=== PATIENT | female | born 1945 | race Caucasian/White ===

== ENCOUNTER 2016-06-28 03:54 | Inpatient (IN) | payer MEDICARE, MEDICAID ==
[~2016-06-28] VITALS: Ht 154.9 cm; Wt 134.8 kg
[2016-06-28] VITALS (7 sets, daily range): BP systolic 126–189; BP diastolic 58–89
--- NOTE | ~2016-06-28 | PR ---
[place], [place] PROGRESS NOTE NAME: KRIS MCCOY UNIT #: [id number] [facility] DOCTOR: MAINE ALLEN MD,ANA BIRTHDATE: [birth year] DOS: 07/03/2016 SUBJECTIVE: The patient was seen and examined on 07/03/2016. She has been still noted with intermittent pain in the abdomen with a cough. Denies symptoms of chest pain or any abdominal pain. Urine for legionella antigen was noted positive. The patient denies symptoms of hemoptysis. OBJECTIVE: VITAL SIGNS: Shows temperature was normal, respiratory rate 20, heart rate 86, blood pressure 166/77. Intake of ____ mL, negative ____ L. The pulse oxygen saturation on 2 L nasal cannula 97% saturation recorded. HEENT: Examination shows no acute change. NECK: Supple. CARDIOVASCULAR: S1, S2 audible. LUNGS: The patient noted without any wheezing or crackles. ABDOMEN: Still noted mild tenderness in the upper portion of the abdomen. LABORATORY DATA: The lower portion of the CT of the thorax shows evidence of left lower lobe infiltration and consolidation, which were not visible on the chest x-ray. There was no abnormal finding noted in the CT scan of the abdomen and pelvis as per assessment of the radiologist. Urine for legionella antigen noted positive. IMPRESSION: 1. The patient with acute legionella pneumonia for this patient visible only on the CT scan of the chest for the patient involving the left lower lobe with general malaise. 2. Muscular pain of the anterior abdominal wall of the patient secondary to cough. 3. Severe debility and also deconditioning. 4. Congestive heart failure with edema for this patient. 5. Atrial fibrillation with intermittent rapid ventricular response. 6. Anticoagulation for the patient for the atrial fibrillation, which is still noted subtherapeutic. PLAN OF TREATMENT: Continue to adjust the antibiotics for the patient according to current culture results. Physical therapy and occupational therapy for the patient has been ordered. Consultation for [facility] for the patient. Continue Zithromax for this patient for the medical legionella infection. Other supportive plan of management. Usual care. [place], [place] PROGRESS NOTE NAME: KRIS MCCOY UNIT #: [id number] [facility]: [facility] DOCTOR: MAINE ALLEN MD,ANA BIRTHDATE: [birth year] ANA GROVE MD CM:PNTRANS 09 ANA ALLEN MD 07/03/16 1310 interface
--- NOTE | ~2016-06-28 | CON ---
[place], [place] RE[facility]ATION [id number] UNIT #: [id number] ROOM: [facility] DOCTOR: TORSTEN HURD MD BIRTHDATE: [birth year] DOS: 07/02/2016 HISTORY OF PRESENT ILLNESS: This is a 70-year-old ____ [place] woman with a history of chronic atrial fibrillation, going back at least 7-8 years according to the . She also has had a stroke last year with some residual. She has chronic anemia, type 2 diabetes mellitus, and also carries a diagnosis of combined systolic and diastolic heart failure. She had had hysterectomy. She does not smoke nor does she drink alcoholic beverages. She had been a senior care resident and is . She had become increasingly short of breath along with some cough and has been bedridden for many months and was brought to this hospital. She had no fever or chills. tells me that she had been eating reasonably well. No swelling of the lower extremities, loss of consciousness. ALF MEDICATIONS: Numerous, albuterol, Breo Ellipta, allopurinol, alprazolam, aspirin, atorvastatin, bethanechol, Celebrex, citalopram, clonidine 0.3 mg t.i.d., diltiazem CD 240 daily, furosemide 20 daily, metoprolol 25 mg b.i.d., potassium chloride 10 mEq daily, furosemide 20 p.o. daily, metformin 1 gram daily, ranitidine 150 daily, Florastor 250 mg daily, Januvia, spironolactone 25 b.i.d., Flomax 0.4 mg daily, warfarin 2 mg on Saturday and 4 on the other days. PHYSICAL EXAMINATION: GENERAL: Reveals a patient who is extremely obese. She is normally mobile. She is alert, but may not be quite oriented. VITAL SIGNS: Temperature is normal. Pulse is 110 and irregular. JVP is 168/94. NECK: No bruits. There is no cardiomegaly. HEART: Cardiac auscultation did not reveal any murmurs. EXTREMITIES: Large legs with minimal edema. RESPIRATORY: Breath sounds are diminished with lot of crackles on both sides. DIAGNOSTIC STUDIES: An ECG showed atrial fibrillation with a ventricular rate of 122 beats per minute and probably old anterior wall [place]. There is QS in V1-V6 and low voltage limb leads. An echocardiogram [address] Del Rio and she had an EF of 35% at that time. Chest x-ray demonstrated normal cardiac silhouette and no acute process. Sodium 140, potassium 5.3, creatinine 1.05, and BUN 45. Hemoglobin 11.8 g/dL. IMPRESSION: This patient has atrial fibrillation with rapid ventricular rate. She is currently on metoprolol 50 b.i.d., which was increased from home dose. She is on IV Cardizem drip as well. There is no clinical or radiographic evidence of heart failure. Extreme obesity is a hindrance to her health. RECOMMENDATIONS: Lopressor can be increased to 100 mg b.i.d. and if this does not ____ the heart rate adequately, I would probably add digoxin. My other [place], [place] REPORT OF CONSULTATION NAME: KRIS MCCOY UNIT #: [id number] ROOM: [facility] DOCTOR: TORSTEN HURD MD BIRTHDATE: [birth year] concern is that the diltiazem is a negative inotropic drug and with the patient having reduced LV systolic function, this calcium channel behzad is likely to worsen her systolic function and if can be discontinued would be helpful to her. I thank you on behalf of Dr. Del Rio for this consult. TORSTEN HURD MD CM:CONSTR:REPORT OF CONSULTATION 1840 07/03/16 6705 interface
--- NOTE | ~2016-06-28 | CON ---
[place], [place] REPORT OF CONSULTATION NAME: KRIS MCCOY [facility] #: [id number] UNIT #: [id number] ROOM: 421 DOCTOR: MAINE ALLEN MDANA BIRTHDATE: [birth year] DOS: 06/30/2016 PULMONARY CONSULTATION, EVALUATION AND MANAGEMENT Consultation was requested by the hospitalist service. REASON FOR CONSULTATION: Persistent ongoing acute respiratory symptoms of shortness of breath and wheezing, not resolving. HISTORY OF PRESENT ILLNESS: The patient is a 70-year-old female who has been known to me with the past, but have not seen for several years by me. She has been admitted from the [facility]. The patient has developed symptoms of increased chest congestion, coughing, and shortness of breath for about 2-3 days. The patient stated that she had been ambulating. The patient has been noted with embolic stroke previously and noted decreased ambulation. The patient denies any symptoms of chest pain. The coughing has been still noted with sputum expectoration described intermittently. Denies symptoms of hemoptysis. She denies any pain in the chest. The wheezing, the patient has been noted continuously worsening for this patient intermittently. REVIEW OF SYSTEMS: CONSTITUTIONAL: Fatigue and tiredness noted without symptoms of fever or chills. EYES: Denies burning, redness, or tenderness. EARS, NOSE, THROAT: The patient denies sore throat, hoarseness, otalgia, postnasal drainage or epistaxis. CARDIOVASCULAR: Denies anginal pain, edema of the lower extremities. GASTROINTESTINAL: The patient with severe morbid obesity without any abdominal pain, hematemesis, melena, dysphagia, or hematochezia. GENITOURINARY: Denies dysuria, suprapubic pain, hematuria. Currently has Connor catheter in place. SKIN: Denies lesions or rashes. MUSCULOSKELETAL: Denies acute joint pain, redness, or tenderness. CENTRAL NERVOUS SYSTEM: The patient with residual hemiparesis from the past. SOCIAL HISTORY: The patient is and currently residing in the nursing facility. She has been noted nonsmoker lifetime. No history of past alcohol use or any illicit drug use. PAST MEDICAL HISTORY: For this patient was noted with, 1. History of chronic atrial fibrillation. 2. History of congestive heart failure with diastolic dysfunction. 3. Chronic severe obesity. 4. History of gastroesophageal reflux. 5. Chronic lymphedema of the lower extremities as well. 6. Past history of embolic stroke for this patient in bedridden status for this patient as well. 7. History of morbid obesity. 8. Hypercoagulable status. 9. Type 2 diabetes mellitus. [place], [place] REPORT OF CONSULTATION NAME: KRIS MCCOY UNIT #: [id number] ROOM: 421 DOCTOR: ANA ANGLIN MD BIRTHDATE: [birth year] PAST SURGICAL HISTORY: The patient was known as a complete hysterectomy. FAMILY HISTORY: The patient's mother at the age of 8585 years old from complications of dementia. Father at age of 6565 years old from complications related to bronchial asthma. HOME MEDICATIONS: The patient was rather noted as use of albuterol sulfate, Xanax, aspirin, Lipitor, bethanechol, Lexapro, citalopram, clonidine, diltiazem, Breo Ellipta, Lasix oral, sliding scale insulin coverage, Levemir insulin, metformin, metoprolol tartrate, potassium chloride, ranitidine, Florastor, Aldactone, Flomax, torsemide, Coumadin 2 mg alternating 4 mg daily. DRUG ALLERGIES: Reported allergy: 1. PENICILLIN. 2. IODINE. 3. LOVASTATIN. PHYSICAL EXAMINATION: GENERAL: This is a 70-year-old white female who has been noted audible wheezing, currently noted Intensive Care Unit. Height of 5 feet 1 inch, weight of 319 pounds, BMI 60.0. VITAL SIGNS: The patient shows normal temperature, respiratory rate of the patient recorded as 20-22, heart rate of 98-131. Atrial fibrillation was noted. Blood pressure ranging between 210/170 to 130/90. Intake for the patient 1600 mL, output was 2.854 liters. Negative fluid balance 1229 mL. Pulse oxygen saturation on 2 L nasal cannula was 98% saturation. HEENT: Chronic severe obesity. Neck was supple. Head was atraumatic. Eyes nonicterus. CARDIOVASCULAR: S1, S2 audible. LUNGS: The patient was noted with generally reduced breath sounds. Diffuse expiratory wheezing was noted. Air entry was noted moderately decreased. No crackles were heard. ABDOMEN: Soft, nontender and obese. EXTREMITIES: Shows chronic edematous changes in the patient's lower extremities. SKIN: No lesions or rashes. MUSCULOSKELETAL: No acute deformities. LABORATORY DATA: Done on this patient. CBC of the patient on 06/28/2016 admission, WBC count was 8.8, hemoglobin 10.7, hematocrit 35.4, platelet count of 201,000. The lactic acid 2.0 on admission 06/28/2016. On 06/28/2016, INR 2.6. CMP of the patient on 06/28/2016 on admission, glucose 229, BUN 21, creatinine 1.09, carbon dioxide 33. ProBNP 770. Influenza A and B, nasal washing antigens were negative. The CMP of the patient that was done for the patient on 06/29/2016 shows BUN 22, creatinine 1.04. Glucose of 301. CBC on patient of 06/29/2016 shows hemoglobin 10.5, hematocrit 34.6, WBC count normal, platelet count was normal at 218,000. The blood culture of the patient, which was done for the patient on admission on no bacterial growth. Preliminary [place], [place] REPORT OF CONSULTATION NAME: KRIS MCCOY UNIT #: [id number] ROOM: [facility] DOCTOR: MAINE ALLEN MD,[facility] BIRTHDATE: [birth year] with final cultures are still pending. Culture of the sputum of the patient showed no bacterial growth. CBC of 06/30/2016, WBC count 12.7, hemoglobin 11, hematocrit 35.6, platelet count 253,000. PT/INR this morning noted subtherapeutic as 1.8. BMP of the patient this morning BUN 32, creatinine was normal at 1.08, glucose 370, potassium 5.3, carbon dioxide 35. The chest x-ray only 1 view, which was done in the Emergency Room 06/28/2016, patient was noted with finding of pulmonary venous congestion noted for this patient in the lungs bilaterally with either cardiomegaly on this patient causing the blunting of the right costophrenic angle or infiltration in the left lower lung cannot be completely excluded, lack of the lateral view of the patient does limit the finding and the film was also noted somewhat asymmetrical. IMPRESSION: 1. The patient who has been currently noted with acute pneumonia suspected with congestive heart failure and acute exacerbation of bronchial asthma for this patient would be likely. 2. Morbid obesity for this patient as well. 3. Suspicion of obstructive sleep apnea disorder, but not been assessed in the past for obstructive sleep apnea disorder. 4. The patient with evidence of chronic hypercarbic respiratory failure as well. 5. History of diabetes mellitus. The patient has uncontrolled diabetes mellitus as well. 6. Wheezing, patient noted with suspicion of the mucous impaction of the major airways. 7. Subtherapeutic INR noted today. PLAN OF TREATMENT: Continue conservative treatment at this time with antibiotics, bronchodilators, oxygen supplementation and others. Sputum culture was noted negative. PA lateral chest x-ray of the patient will be reviewed with the patient to exclude the left lower lobe area of atelectasis, infiltration or other abnormalities. Diuresis, the patient to be continued on close monitoring of BUN and creatinine for this patient as well. All other supportive therapy, plan of management, continue to maximize the medical management of atrial fibrillation with rapid ventricular response. Further change in treatment will be done based on the progression of the illness. Other treatment and management for the patient will be changed for the patient based on progression of the illness. Use of the BiPAP in case of any progressive respiratory failure. Arterial blood gas will be done p.r.n. to reassess in case of further hypoxic for this patient or mental status changes. Thanks for allowing me to participate in the care of this patient. [place], [place] REPORT OF CONSULTATION NAME: KRIS MCCOY [place] UNIT #: [id number] ROOM: [facility] DOCTOR: ANA ANGLIN MD BIRTHDATE: [birth year] ANA GROVE MD CM:CONSTR:REPORT OF CONSULTATION 1549 07/06/16 1553 interface
--- NOTE | ~2016-06-28 | PR ---
[place], [place] PROGRESS NOTE NAME: KRIS MCCOY [facility] #: [id number] UNIT #: [id number] ROOM: [facility] DOCTOR: MAINE ALLEN MD,ANA BIRTHDATE: [birth year] DOS: 07/01/2016 SUBJECTIVE: She has been complaining of pain, which is described in the abdomen in the area of left flank as well as in the mid portion of the abdomen. The symptoms were not associated with any nausea, vomiting at the present time. Shortness of breath has been noted sometime shallow at time. She has been noted mild coughing without any sputum expectoration. She denies any symptoms of chest pain. OBJECTIVE: VITAL SIGNS: For the patient which has been recorded showed normal temperature, respiratory rate 23, heart rate 90, blood pressure 150/85-163/85. Intake for the patient was recorded as 2000, the output 5500 mL, and negative 3500 mL. Pulse ox saturation recorded 93% saturation. HEENT: Examination shows moderate obesity. NECK: Supple. CARDIOVASCULAR: The S1, S2 is audible. LUNGS: For the patient was noted without any crackles. ABDOMEN: Noted with severe chronic obesity. Mild tenderness for this patient noted with palpation of the mid abdomen. Bowel sounds are present. EXTREMITIES: Showed reduction of the edema from yesterday's examination. LABORATORY DATA: PT/INR today was noted 1.7, which is still subtherapeutic. BMP this morning, BUN 39, creatinine 1.07, glucose of 321, carbon dioxide 35. CBC: WBC count 12.5, hemoglobin 11.1, hematocrit 36.4. The platelet count was normal. Chest x-ray, 2-view, which was done for the patient yesterday, I personally reviewed, shows no acute pulmonary infiltration or other abnormalities at the present time. The arterial blood gas was obtained on 2 L nasal cannula showed pH of 7.37, pCO2 of 62, pO2 of 63.9. IMPRESSION: 1. The patient who has been currently noted with acute respiratory failure, most likely related to congestive heart failure, which is improving. There was no evidence of pneumonia noted radiologically in the patient's chest x-ray, which was repeated yesterday. 2. Oral anticoagulation. 3. Atrial fibrillation with rapid ventricular response, is improving. 4. Acute exacerbation of bronchial asthma as well, which has been improving gradually. 5. Abdominal pain. The patient, etiology unclear requires further assessment except therapeutic INR with adjustment continued for this patient with anticoagulation use of the Coumadin. PLAN OF TREATMENT: BiPAP could be used for this patient p.r.n. with the settings of 14/8 as needed. Monitoring other respiratory status. The dose of the corticosteroids of the patient will be decreased to 40 mg daily from tomorrow morning. Continuation of other previous treatment, plan of management. The antibiotic spectrum needs to be decreased for this patient as soon as all the culture results becomes available. Other supportive plan and management. Further treatment changes will be done based on the progression of the illness. [place], [place] PROGRESS NOTE NAME: KRIS MCCOY UNIT #: [id number] ROOM: [facility] DOCTOR: ANA ANGLIN MD BIRTHDATE: [birth year] ANA GROVE MD CM:PNTRANS [id number] ANA ALLEN MD 07/01/162055 interface
--- NOTE | ~2016-06-28 | PR ---
[place], [place] PROGRESS NOTE NAME: KRIS MCCOY UNIT #: [id number] ROOM: [facility] DOCTOR: MAINE ALLEN MD,ANA BIRTHDATE: [birth year] DOS: 07/04/2016 PULMONARY PROGRESS NOTE SUBJECTIVE: She has been noted more awake and alert this morning. She still noted drowsy. The abdominal pain seemed to be better partially. The coughing has been noted mild. Shortness of breath was also noted decreased. Oxygen supplementation continued nasal cannula with use of the BiPAP intermittently as well. OBJECTIVE: VITAL SIGNS: Normal temperature, respiratory rate of 19, heart rate 94, blood pressure 159/90-184/84. Intake for this patient 1400 mL, output 3600 mL, negative fluid balance approximately 2 liters. HEENT: On examination chronic obesity. NECK: Supple. CARDIOVASCULAR SYSTEM: S1, S2 audible. LUNGS: Shows [id number] decreased breath sounds without any wheezing or crackles. ABDOMEN: Soft, nontender. IMPRESSION: 1. Acute Legionella pneumonia for this patient noted involving the left lower lobe for this patient. 2. Acute congestive heart failure, which has been resolving. 3. Improving mental status changes. 4. Atrial fibrillation with rapid ventricular response still, treated with IV Cardizem drip for this patient, anticoagulation continued with Coumadin as well. PLAN OF TREATMENT: No changes in plan of management at this time. Continue the patient's current therapy, plan of care as previously. Usual medical management and plan of care. Supportive care. ANA GROVE MD CM:PNTRANS [phone] ANA ALLEN MD 07/04/161950 interface
--- NOTE | ~2016-06-28 | PR ---
[place], [place] PROGRESS NOTE NAME: KRIS MCCOY [facility] #: [id number] UNIT #: [id number] ROOM: 421 DOCTOR: MAINE ALLEN MD,ANA BIRTHDATE: [birth year] DOS: 07/05/2016 PULMONARY PROGRESS NOTE SUBJECTIVE: She has been noted essentially the same, reduction of the cough, shortness of breath, atrial fibrillation still noted with rapid ventricular response. The patient IV Cardizem drip has been discontinued this morning. Heart rates were noted in the 100-teens. She has not been noticed symptoms of chest pain. Noted generalized weakness and fatigue. The patient transfer to the long-term acute care facility has been refused by the insurance. OBJECTIVE: VITAL SIGNS: For the patient which has been recorded showed the temperature of the patient noted as normal. The respiratory rate of the patient recorded as 20-23, heart rate 96, blood pressure 168/97-166/99. Intake for the patient was 1980 mL, ____ 3000 mL, negative fluid balance of 1100 mL. The pulse oxygen saturation 3 liters nasal cannula 94% saturation. HEENT: Chronic obesity. NECK: Supple. CARDIOVASCULAR: S1, S2 audible. LUNGS: Moderate decreased breath sound without any wheezing or crackles. ABDOMEN: Soft, nontender. LABORATORY DATA: BMP today: BUN 41, creatinine was normal, glucose 198. Carbon dioxide 35. PT/INR noted 2.9, which is therapeutic today. CBC this morning, WBC count 24.7, hemoglobin 14.2, hematocrit of 44.7, platelet count 275,000, ____% segmented neutrophils. IMPRESSION: 1. The patient with acute Legionella pneumonia for this patient was noted. 2. Therapeutic INR for the patient. 3. Resolving acute exacerbation of bronchial asthma as well. 4. Severe morbid obesity. 5. Past stroke for this patient and bedbound status. 6. Atrial fibrillation with rapid ventricular response. PLAN OF TREATMENT: Discontinue Solu-Medrol for this patient at this time, there was no active wheezing noted. Monitor leukocytosis. Continue to maximize the cardiac management as well. Continue treatment for Legionella disease for this patient's left lower lobe pneumonia. Supportive care. Other therapy, plan of management. Usual care. Further treatment changes will be done based on the progression of the illness. [place], [place] PROGRESS NOTE NAME: KRIS MCCOY UNIT #: [id number] ROOM: 421 DOCTOR: MAINE ALLEN MD,ANA BIRTHDATE: [birth year] ANA GROVE MD CM:PNANGELA [id number] ANA ALLEN MD 07/06/16227 interface
--- NOTE | ~2016-06-28 | PR ---
[place], [place] PROGRESS NOTE [id number] UNIT #: [id number] ROOM: [facility] DOCTOR: GLORIA GALLO MD BIRTHDATE: [birth year] DOS: 07/03/2016 SUBJECTIVE: The patient examined in the Intensive Care Unit. The patient's blood pressure is still 160/70, she is still on 15 mg of Cardizem. She is already on maximum dose of beta behzad with 100 b.i.d. of Lopressor. PHYSICAL EXAMINATION: VITAL SIGNS: Blood pressure today is 160/70, heart rate is about 86 and afebrile. NECK: Supple, no JVD. LUNGS: Diminished breath sounds. HEART: Sounds are irregularly irregular. ABDOMEN: Soft. NEUROLOGIC: Stable. LABORATORY DATA: BUN 45, creatinine is 1, potassium is 5.3. IMPRESSION: The patient with persistent atrial fibrillation on Coumadin. INR is 1.7. RECOMMENDATIONS: Start her on Cardizem-CD 120 daily. Wean off the Cardizem drip as long as the heart rate is below 90. Continue anticoagulation. Keep the INR about 2 and we will follow up. GLORIA GALLO MD CM:PNANGELA [id number] GLORIA GALLO MD 07/03/16 1827 interface
--- NOTE | ~2016-06-28 | PR ---
[place], [place] PROGRESS NOTE NAME[id number] UNIT #: [id number] ROOM: [facility] DOCTOR: TORSTEN HURD MD BIRTHDATE: [birth year] DOS: 07/04/2016 SUBJECTIVE: She is still in ICU. Her heart rate has been in the 90s. She is on diltiazem 15 mg IV per hour, metoprolol 100 mg b.i.d., and she also received a larger dose of oral diltiazem. She has no chest pain or breathing difficulty. She has not had any neurological symptoms. PHYSICAL EXAMINATION: GENERAL: This patient is very obese. She is lying in bed. Mobility is very little. She looks a little pale. VITAL SIGNS: Pulse is irregular at 96 beats per minute, blood pressure is somewhat elevated 184/84 and now is 159/92. NECK: Normal JVP, difficult to assess. CARDIOVASCULAR: On auscultation, no murmurs. LUNGS: Breath sounds are moderately diminished because of morbid obesity, very little edema of the lower extremities. LABORATORY DATA: Monitor shows atrial fibrillation with a rate of 96 beats per minute. IMPRESSION: This patient has chronic atrial fibrillation the rate has digoxin 0.25 mg daily has been added and IV Cardizem should be discontinued, and she should stay on a higher dose of metoprolol and diltiazem. I saw this patient on behalf of Dr. Del Rio. TORSTEN HURD MD CM:PNTRANS 1203 07 TORSTEN HURD MD 07/04/162108 interface
--- NOTE | ~2016-06-28 | CON ---
[place], [place] REPORT OF CONSULTATION NAME: [facility]CC[facility] [id number] UNIT #: [id number] ROOM: [facility] DOCTOR: SHELLIE FERNÁNDEZ,VAIBHAV BIRTHDATE: [birth year] DOS: [facility] was called in yesterday for consult in atrial fibrillation. Upon review of the chart, it turns out the patient belongs to Dr. Lin for that, we signed off and the nurse in charge was notified to call Dr. Lin for further management and treatment. VAIBHAV HENSLEY MD CM:CONSTR:REPORT OF CONSULTATION 0940 07/01/16 2346 interface
--- NOTE | ~2016-06-28 | PR ---
[place], [place] PROGRESS NOTE NAME: KRIS MCCOY [facility] #: [id number] UNIT #: [id number] ROOM: [facility] DOCTOR: MAINE ALLEN MD,ANA BIRTHDATE: [birth year] DOS: 07/02/2016 SUBJECTIVE: The patient was seen and examined on 07/02/2016. She has been still noted with some pain in the abdomen which occurs with the movement. She has not been noted symptoms of diarrhea or vomiting. Shortness of breath, the patient has been noted intermittent change in mental status for the patient and she has been using the BiPAP, which has been tolerated by the patient. Arterial blood gases done today as the patient noted with worsening of the mental status this morning. She has been started on the BiPAP afterwards. OBJECTIVE: VITAL SIGNS: For the patient which have been recorded showed the temperature noted 99.7 degree Fahrenheit to normal temperature, respiratory rate 20-16, heart rate 101-95, blood pressure 180/86-164/87. Intake for the patient is 820 and output is 4050 mL with a negative of 3200 mL. The pulse oxygen saturation with the BiPAP was 98% saturation. HEENT: Shows chronic obesity. NECK: Supple. CARDIOVASCULAR SYSTEM: S1, S2 audible. LUNGS: Limited examination without any wheezing or crackles for this patient noted in the upper and mid portion of the lung. ABDOMEN: Soft with severe obesity, tenderness patient noted on palpation in the upper abdomen. Bowel sounds are present. EXTREMITIES: Shows chronic obesity, partial reduction in edema. LABORATORY DATA: INR today noted as 1.8. The BMP of patient this morning was noted BUN 45; creatinine was normal, glucose 314, potassium 5.3. ABG: The pH of 7.34, pCO2 of 65, pO2 of 68.5. CBC today: WBC count 12.3, hemoglobin 11.8, hematocrit was normal, platelets count was normal. IMPRESSION: 1. The patient who has been currently treated in the hospital at this time and being managed for acute on chronic hypercapnic and hypoxic respiratory failure. 2. Abdominal pain, the patient most likely musculoskeletal in origin. 3. Acute congestive heart failure also noted for this patient with interstitial edema without any evidence of pneumonia for this patient. 4. Severe morbid obesity. 5. Suspected obstructive sleep apnea disorder. PLAN OF TREATMENT: The BiPAP use will be continued for the patient to stabilize the respiratory status. Continue anticoagulation, bronchodilators, oxygen supplementation, assessment of the pain for this patient on the abdomen will be continued. All other supportive therapy, plan of management. Usual care. Other supportive plan of therapies as in progress. [place], [place] PROGRESS NOTE NAME: KRIS MCCOY UNIT #: [id number] ROOM: [facility] DOCTOR: ANA ANGLIN MD BIRTHDATE: [birth year] ANA GROVE MD CM:PNTRANS [id number] ANA ALLEN MD 07/02/16 1308 interface
--- NOTE | ~2016-06-28 | PR ---
[place], [place] PROGRESS NOTE NAME: KRIS MCCOY UNIT #: [id number] ROOM: 421 DOCTOR: ANA ANGLIN MD BIRTHDATE: [birth year] DOS: 07/06/2016 PULMONARY FOLLOWUP NOTE SUBJECTIVE: The patient was seen and examined on 07/06/2016. She has been transferred to telemetry floor. She was continued on anticoagulation and other medical management. The patient has not been noted with any acute hemodynamic instability, noted comfortable lying on the bed. OBJECTIVE: VITAL SIGNS: For the patient which has been recorded showed the temperature recorded normal, respiratory rate 20, heart rate 99-114 with atrial fibrillation, blood pressure noted 137/85-152/103. Intake is 1500 mL, output 2.650 liters. Pulse oxygen saturation on 3 liters nasal cannula 98% saturation. HEENT: Examination shows chronic obesity. NECK: Supple. CARDIOVASCULAR SYSTEM: S1, S2 audible. LUNGS: Noted without any wheezing or crackles. ABDOMEN: Chronic obesity. EXTREMITIES: Shows resolving edema of the lower extremities. LABORATORY DATA: INR in today's lab 3.1, which is normal. The CMP of patient that was done this morning for the patient noted BUN 42, creatinine was normal. CO2 was 37. CBC this morning, WBC count 22.8, hemoglobin, hematocrit and platelet count was normal. IMPRESSION: 1. The patient who has been noted with gradual improvement in the respiratory status with acute on chronic hypercapnic and hypoxic respiratory failure and acute on chronic bedbound status. 2. Past history of past stroke. 3. Acute Legionella pneumonia. 4. Chronic anticoagulation and atrial fibrillation with intermittent rapid ventricular response. 5. Over severe obesity. PLAN OF TREATMENT: Continuation of antibiotics, bronchodilators, and oxygen supplementation. The antibiotic will be extended for the patient for another 7 days for the medical Legionella pneumonia. Other supportive plan and management as in progress. Continue maximizing therapy for the patient from the cardiac standpoint for the patient as well. Monitor leukocytosis, which has been noted with gradual reduction at the present time. [place], [place] PROGRESS NOTE NAME: KRIS MCCOY UNIT #: [id number] ROOM: 421 DOCTOR: ANA ANGLIN MD BIRTHDATE: [birth year] ANA GROVE MD CM:PNTRANS [id number] ANA ALLEN MD 07/06/16 2316 interface
[~2016-06-28 03:54] MED LIST: ALDACTONE25 MG PO; ALLOPURINOL300 MG PO; AMITRIPTYLINE25 MG PO; ANAPROX DS550 MG PO; ASPIRIN ADULT L81 M2 PO; CARTIA XT240 MG PO; CIPROFLOXACIN500 MG PO; CITALOPRAM40 MG PO; CLONIDINE0.3 MG PO; Coumadin2.5 MG PO; DAYPRO600 M1 PO; DESITIN40% T; FLOMAX0.4 MG PO; GLIPIZIDE5 MG PO; HUMALOG100 U/ML SC; KEFLEX500 MG PO; LEVEMIR10 ML SC; LEVOFLOXACIN500 MG PO; MACROBID100 M1 PO; MELATONIN3 MG PO; METOPROLOL25 MG PO; MOTRIN800 MG PO; NEURONTIN100 MG PO; POTASSIUM CHLO10 ME4 PO; PROSOURCE PLUS887 ML PO; PROTONIX40 MG PO; PYRIDIUM200 MG PO; ROBAXIN750 MG PO; TORSEMIDE20 MG PO; TYLENOL325 M1 PO; VIBRAMYCIN100 MG PO; VOLTAREN GEL1% TP; WARFARIN SOD5 MG PO; WARFARIN2 MG PO; XANAX0.25 MG PO; [UNRECOGNIZED DRUG - OTHER] PO
[2016-06-28] MEDS ORDERED: BETHANECHOL CHL10 MG PO (04:20)
[2016-06-28] MEDS ORDERED: BREO ELLIPTA 11 EACH IH (04:21)
[2016-06-28] MEDS ORDERED: CELEBREX100 MG PO (04:22)
[2016-06-28] MEDS ORDERED: FLORASTOR250 MG PO (04:30)
[2016-06-28] MEDS ORDERED: JANUVIA100 MG PO (04:31)
[2016-06-28] MEDS ORDERED: LASIX20 MG PO (04:36)
[2016-06-28] MEDS ORDERED: LIPITOR10 MG PO (04:38)
[2016-06-28] MEDS ORDERED: METFORMIN1000 MG PO (04:39)
[2016-06-28 04:40] LABS: BASO % 0.5 % (0.0-1.0); EOS # 0.3 10*3/uL (0.0-0.4); EOS % 3.1 % (1.0-4.0); HEMATOCRIT 35.4 % (37.0-47.0); HEMOGLOBIN 10.7 g/dl (12.0-16.0); IG # 0.1 10*3/uL (0.0-0.1); LYMPH % 11.8 % (27.0-41.0); MEAN CELL VOLUME 91.5 fl (81.0-99.0); MEAN CORPUSCULAR HGB 27.6 pg (27.0-31.0); MEAN CORPUSCULAR HGB CONC 30.2 g/dl (33.0-37.0); MEAN PLATELET VOLUME 9.2 fl (9.6-12.3); MONO # 1.1 10*3/uL (0.1-1.0); MONO % 12.8 % (3.0-9.0); NEUT # 6.2 10*3/uL (2.3-7.9); NEUT % 70.3 % (47.0-73.0); NUCLEATED RED BLOOD CELL 0.2 % (0.0-0.0); PLATELET COUNT AUTOMATED 201 10*3/uL (130-400); RED BLOOD COUNT 3.87 10*6/uL (4.10-5.10); RED CELL DISTRI WIDTH 16.5 % (0-14.5); WHITE BLOOD COUNT 8.8 10*3/uL (4.8-10.8)
[2016-06-28] MEDS ORDERED: NOVOLOG10 ML SQ ×2 (04:43→07:07)
[2016-06-28] MEDS ORDERED: RANITIDINE HCL150 M1 PO (04:44)
[2016-06-28 04:49] LABS: INTERNATIONAL NORM RATIO 2.6 (2.0-3.5); PROTHROMBIN TIME 28.8 SECONDS (9.0-12.4)
[2016-06-28 04:59] LABS: ALKALINE PHOSPHATASE 141 U/L (45-117); BILIRUBIN, TOTAL 0.4 mg/dl (0.2-1.0); BUN 21 mg/dl (7-24); CARBON DIOXIDE 33 mmol/L (21-32); CHLORIDE 97 mmol/L (98-107); EST GLOM FILT AFRICAN AMERICAN > 60 ml/min; GLUCOSE 229 mg/dL (65-99); POTASSIUM 4.7 mmol/L (3.5-5.1); SGOT/AST 13 IU/L (3-35); SGPT/ALT 16 U/L (12-78); SODIUM 138 mmol/L (136-145); TOTAL PROTEIN 7.5 gm/dL (6.4-8.2)
[2016-06-28 05:02] LABS: TROPONIN I < 0.015 ng/ml (<0.045)
[2016-06-28 05:10] LABS: ABG BASE EXCESS 4.7 mmol/L (-2.0-2.0); ABG CO2 CONTENT 31.7 mmol/L (23-27); ABG HCO3 30.1 mmol/l (22-26); ARTERIAL BLOOD GAS PH 7.391 (7.35-7.45); ARTERIAL BLOOD GAS PO2 77.7 mmHg (80-90)
[2016-06-28] MEDS ORDERED: ALBUTEROL 3 ML 33 ML NEB (06:54)
[2016-06-28] MEDS ORDERED: COUMADIN2 MG PO (06:57)
[2016-06-28] MEDS ORDERED: CARDIZEM CD240 M1 PO (06:59)
[2016-06-28] MEDS ORDERED: KLOR-CON 1010 ME1 PO (07:11)
[2016-06-28] MEDS ORDERED: POTASSIUM CHLO20 MEQ PO (08:52)
[2016-06-28] MEDS ORDERED: POTASSIUM CHLO10 ME5 PO (08:54)
[2016-06-28 10:49] LABS: BILIRUBIN NEGATIVE (NEGATIVE); BLOOD TRACE-INTACT (NEGATIVE); CLARITY CLOUDY (CLEAR); COLOR YELLOW (YELLOW); GLUCOSE TRACE (NEGATIVE); KETONE NEGATIVE (NEGATIVE); LEUKO ESTERASE TRACE (NEGATIVE); NITRITE POSITIVE (NEGATIVE); PH 5.5 (5.0-9.0); PROTEIN NEGATIVE (NEGATIVE); UROBILINOGEN 0.2 E.U./dl (0.2-1.0)
[2016-06-28 11:03] LABS: BACTERIA 4+; URINE REFLEX COMMENT YES (NO); WBC 21-30 wbc/hpf (0-5)
[2016-06-28 11:04] LABS: CALCIUM OXALATE CRYSTALS 1+; RBC 16-20 rbc/hpf (0-2)
[2016-06-29] VITALS: BP 150/73
[2016-06-29 04:00] VITALS: BP 152/80
[2016-06-29 06:03] LABS: HEMATOCRIT 34.6 % (37.0-47.0); HEMOGLOBIN 10.5 g/dl (12.0-16.0); MEAN CELL VOLUME 91.5 fl (81.0-99.0); MEAN CORPUSCULAR HGB 27.8 pg (27.0-31.0); MEAN CORPUSCULAR HGB CONC 30.3 g/dl (33.0-37.0); MEAN PLATELET VOLUME 9.1 fl (9.6-12.3); PLATELET COUNT AUTOMATED 218 10*3/uL (130-400); RED BLOOD COUNT 3.78 10*6/uL (4.10-5.10); RED CELL DISTRI WIDTH 16.2 % (0-14.5); WHITE BLOOD COUNT 8.5 10*3/uL (4.8-10.8)
[2016-06-29 06:15] LABS: ALBUMIN 2.9 gm/dl (3.1-4.5); ALKALINE PHOSPHATASE 120 U/L (45-117); BILIRUBIN, TOTAL 0.4 mg/dl (0.2-1.0); BUN 22 mg/dl (7-24); CARBON DIOXIDE 32 mmol/L (21-32); CHLORIDE 99 mmol/L (98-107); CHOLESTEROL 186 mg/dL (<200); EST GLOM FILT AFRICAN AMERICAN > 60 ml/min; FREE T4 0.95 ng/dl (0.76-1.46); GLUCOSE 301 mg/dL (65-99); HDL CHOLESTEROL 64 mg/dl (40-60); LDL CHOLESTEROL 105 mg/dL (9-159); MAGNESIUM 2.5 mg/dL (1.5-2.1); SGOT/AST 6 IU/L (3-35); SGPT/ALT 15 U/L (12-78); SODIUM 139 mmol/L (136-145); TOTAL PROTEIN 7.2 gm/dL (6.4-8.2); TRIGLYCERIDES 86 mg/dl (<150); VLDL CHOLESTEROL 17 mg/dL (6-40)
[2016-06-29 06:19] LABS: INTERNATIONAL NORM RATIO 1.7 (2.0-3.5); THYROID STIM HORMONE (HS) 0.785 uIU/ml (0.358-4.75)
[2016-06-29 06:25] LABS: HEMOGLOBIN A1c 7.8 % (4.8-5.6)
[2016-06-29 06:28] LABS: LYMPHOCYTE # 0.5 10*3/uL (1.3-4.4); MYELOCYTES 2 % (0-0); NEUTROPHIL # 7.8 10*3/uL (2.3-7.9); NEUTROPHILS 92 % (47-73); PLATELET SUFFICIENCY NORMAL (NORMAL); TOTAL CELLS COUNTED 100 #CELLS
[2016-06-29 07:43] LABS: FOLIC ACID 4.01 ng/mL (>5.38); VITAMIN D, 25-HYDROXY 39.6 ng/mL (30-100)
[2016-06-29 12:00] VITALS: BP 135/56
[2016-06-29 16:00] VITALS: BP 155/71
[2016-06-29 20:00] VITALS: BP 158/71
[2016-06-30] VITALS (14 sets, daily range): BP systolic 130–210; BP diastolic 78–109
[2016-06-30 12:06] LABS: BASO % 0.1 % (0.0-1.0); HEMATOCRIT 35.6 % (37.0-47.0); IG # 0.2 10*3/uL (0.0-0.1); LYMPH # 0.5 10*3/uL (1.3-4.4); LYMPH % 4.2 % (27.0-41.0); MEAN CELL VOLUME 91.5 fl (81.0-99.0); MEAN CORPUSCULAR HGB 28.3 pg (27.0-31.0); MEAN CORPUSCULAR HGB CONC 30.9 g/dl (33.0-37.0); MONO # 1.1 10*3/uL (0.1-1.0); MONO % 8.3 % (3.0-9.0); NEUT % 85.9 % (47.0-73.0); PLATELET COUNT AUTOMATED 253 10*3/uL (130-400); RED BLOOD COUNT 3.89 10*6/uL (4.10-5.10); RED CELL DISTRI WIDTH 16.4 % (0-14.5); WHITE BLOOD COUNT 12.7 10*3/uL (4.8-10.8)
[2016-06-30 12:14] LABS: INTERNATIONAL NORM RATIO 1.8 (2.0-3.5); PROTHROMBIN TIME 19.5 SECONDS (9.0-12.4)
[2016-06-30 12:20] LABS: CARBON DIOXIDE 35 mmol/L (21-32); CHLORIDE 97 mmol/L (98-107); EST GLOM FILT AFRICAN AMERICAN > 60 ml/min; GLUCOSE 370 mg/dL (65-99); POTASSIUM 5.3 mmol/L (3.5-5.1); SODIUM 141 mmol/L (136-145)
[2016-06-30 12:26] LABS: BUN 32 mg/dl (7-24)
[2016-07-01] VITALS (12 sets, daily range): BP systolic 137–198; BP diastolic 82–101
[2016-07-01 05:54] LABS: BASO % 0.1 % (0.0-1.0); HEMATOCRIT 36.4 % (37.0-47.0); HEMOGLOBIN 11.1 g/dl (12.0-16.0); IG # 0.2 10*3/uL (0.0-0.1); LYMPH # 0.5 10*3/uL (1.3-4.4); MEAN CELL VOLUME 90.5 fl (81.0-99.0); MEAN CORPUSCULAR HGB 27.6 pg (27.0-31.0); MEAN CORPUSCULAR HGB CONC 30.5 g/dl (33.0-37.0); MEAN PLATELET VOLUME 9.3 fl (9.6-12.3); MONO # 0.9 10*3/uL (0.1-1.0); MONO % 7.4 % (3.0-9.0); NEUT # 10.9 10*3/uL (2.3-7.9); NEUT % 86.7 % (47.0-73.0); NUCLEATED RED BLOOD CELL 0.2 % (0.0-0.0); PLATELET COUNT AUTOMATED 258 10*3/uL (130-400); RED BLOOD COUNT 4.02 10*6/uL (4.10-5.10); WHITE BLOOD COUNT 12.5 10*3/uL (4.8-10.8)
[2016-07-01 05:57] LABS: BUN 39 mg/dl (7-24); CARBON DIOXIDE 35 mmol/L (21-32); CHLORIDE 95 mmol/L (98-107); EST GLOM FILT AFRICAN AMERICAN > 60 ml/min; GLUCOSE 321 mg/dL (65-99); POTASSIUM 5.1 mmol/L (3.5-5.1); SODIUM 139 mmol/L (136-145)
[2016-07-01 06:29] LABS: INTERNATIONAL NORM RATIO 1.7 (2.0-3.5); PROTHROMBIN TIME 18.1 SECONDS (9.0-12.4)
[2016-07-01 13:44] LABS: ABG BASE EXCESS 8.7 mmol/L (-2.0-2.0); ABG CO2 CONTENT 37.4 mmol/L (23-27); ABG HCO3 35.5 mmol/l (22-26); ABG TEMPERATURE 98.4 F (98.0-99.0); ARTERIAL BLOOD GAS PH 7.372 (7.35-7.45); ARTERIAL BLOOD GAS PO2 63.9 mmHg (80-90)
[2016-07-02] VITALS (12 sets, daily range): BP systolic 138–180; BP diastolic 59–94
[2016-07-02 05:57] LABS: BASO % 0.2 % (0.0-1.0); HEMATOCRIT 38.5 % (37.0-47.0); HEMOGLOBIN 11.8 g/dl (12.0-16.0); IG # 0.2 10*3/uL (0.0-0.1); LYMPH # 0.6 10*3/uL (1.3-4.4); LYMPH % 4.9 % (27.0-41.0); MEAN CELL VOLUME 89.5 fl (81.0-99.0); MEAN CORPUSCULAR HGB 27.4 pg (27.0-31.0); MEAN CORPUSCULAR HGB CONC 30.6 g/dl (33.0-37.0); MEAN PLATELET VOLUME 9.3 fl (9.6-12.3); MONO # 1.1 10*3/uL (0.1-1.0); MONO % 8.5 % (3.0-9.0); NEUT # 10.4 10*3/uL (2.3-7.9); NEUT % 84.5 % (47.0-73.0); PLATELET COUNT AUTOMATED 264 10*3/uL (130-400); RED CELL DISTRI WIDTH 15.5 % (0-14.5); WHITE BLOOD COUNT 12.3 10*3/uL (4.8-10.8)
[2016-07-02 06:06] LABS: BUN 45 mg/dl (7-24); CARBON DIOXIDE 32 mmol/L (21-32); CHLORIDE 99 mmol/L (98-107); EST GLOM FILT AFRICAN AMERICAN > 60 ml/min; GLUCOSE 314 mg/dL (65-99); POTASSIUM 5.3 mmol/L (3.5-5.1); SODIUM 140 mmol/L (136-145)
[2016-07-02 06:06] LABS: ABG BASE EXCESS 7.4 mmol/L (-2.0-2.0); ABG CO2 CONTENT 36.3 mmol/L (23-27); ABG HCO3 34.4 mmol/l (22-26); ABG TEMPERATURE 99.7 F (98.0-99.0); ARTERIAL BLOOD GAS PH 7.347 (7.35-7.45); ARTERIAL BLOOD GAS PO2 68.5 mmHg (80-90)
[2016-07-02 06:18] LABS: INTERNATIONAL NORM RATIO 1.8 (2.0-3.5); PROTHROMBIN TIME 19.3 SECONDS (9.0-12.4)
[2016-07-02 18:05] LABS: ORGANISM ID Not indicated. (.); SPECIMEN SOURCE Urine (.); STREPTOCOCCUS PNEUMONIAE AG Negative (Negative)
[2016-07-03] VITALS (13 sets, daily range): BP systolic 158–188; BP diastolic 66–105
[2016-07-03 06:15] LABS: INTERNATIONAL NORM RATIO 1.7 (2.0-3.5); PROTHROMBIN TIME 19.2 SECONDS (9.0-12.4)
[2016-07-03 09:24] LABS: HEMATOCRIT 41.4 % (37.0-47.0); HEMOGLOBIN 12.6 g/dl (12.0-16.0); MEAN CELL VOLUME 90.2 fl (81.0-99.0); MEAN CORPUSCULAR HGB 27.5 pg (27.0-31.0); MEAN CORPUSCULAR HGB CONC 30.4 g/dl (33.0-37.0); MEAN PLATELET VOLUME 8.7 fl (9.6-12.3); NUCLEATED RED BLOOD CELL 0.1 % (0.0-0.0); PLATELET COUNT AUTOMATED 273 10*3/uL (130-400); RED BLOOD COUNT 4.59 10*6/uL (4.10-5.10); RED CELL DISTRI WIDTH 15.1 % (0-14.5)
[2016-07-03 09:39] LABS: ALBUMIN 2.9 gm/dl (3.1-4.5); ALKALINE PHOSPHATASE 95 U/L (45-117); BILIRUBIN, TOTAL 0.4 mg/dl (0.2-1.0); BUN 41 mg/dl (7-24); CARBON DIOXIDE 38 mmol/L (21-32); CHLORIDE 97 mmol/L (98-107); EST GLOM FILT AFRICAN AMERICAN > 60 ml/min; GLUCOSE 243 mg/dL (65-99); POTASSIUM 4.9 mmol/L (3.5-5.1); SGOT/AST 9 IU/L (3-35); SGPT/ALT 19 U/L (12-78); SODIUM 142 mmol/L (136-145)
[2016-07-03 09:45] LABS: METAMYELOCYTES 1 % (0-0); MONOCYTE # 2.3 10*3/uL (0.1-1.0); MYELOCYTES 4 % (0-0); NEUTROPHIL # 10.1 10*3/uL (2.3-7.9); NEUTROPHILS 67 % (47-73); PLATELET SUFFICIENCY NORMAL (NORMAL); TOTAL CELLS COUNTED 100 #CELLS
[2016-07-04] VITALS (8 sets, daily range): BP systolic 137–184; BP diastolic 71–92
[2016-07-04 06:16] LABS: HEMATOCRIT 40.3 % (37.0-47.0); HEMOGLOBIN 12.3 g/dl (12.0-16.0); MEAN CELL VOLUME 90.2 fl (81.0-99.0); MEAN CORPUSCULAR HGB 27.5 pg (27.0-31.0); MEAN CORPUSCULAR HGB CONC 30.5 g/dl (33.0-37.0); MEAN PLATELET VOLUME 9.3 fl (9.6-12.3); PLATELET COUNT AUTOMATED 234 10*3/uL (130-400); RED BLOOD COUNT 4.47 10*6/uL (4.10-5.10); RED CELL DISTRI WIDTH 15.3 % (0-14.5)
[2016-07-04 06:28] LABS: BUN 41 mg/dl (7-24); CARBON DIOXIDE 37 mmol/L (21-32); CHLORIDE 94 mmol/L (98-107); EST GLOM FILT AFRICAN AMERICAN > 60 ml/min; GLUCOSE 197 mg/dL (65-99); POTASSIUM 4.7 mmol/L (3.5-5.1); SODIUM 138 mmol/L (136-145)
[2016-07-04 07:09] LABS: LYMPHOCYTE # 1.3 10*3/uL (1.3-4.4); METAMYELOCYTES 2 % (0-0); MONOCYTE # 2.1 10*3/uL (0.1-1.0); NEUTROPHIL # 10.4 10*3/uL (2.3-7.9); NEUTROPHILS 74 % (47-73); PLATELET SUFFICIENCY NORMAL (NORMAL); TOTAL CELLS COUNTED 100 #CELLS
[2016-07-04 07:10] LABS: INTERNATIONAL NORM RATIO 2.1 (2.0-3.5); PROTHROMBIN TIME 23.3 SECONDS (9.0-12.4); VACUOLATION OF NEUTROPHILS SLIGHT
[2016-07-05] VITALS: BP 166/99
[2016-07-05 04:00] VITALS: BP 168/97
[2016-07-05 06:31] LABS: HEMATOCRIT 44.7 % (37.0-47.0); HEMOGLOBIN 14.2 g/dl (12.0-16.0); MEAN CORPUSCULAR HGB 27.7 pg (27.0-31.0); MEAN CORPUSCULAR HGB CONC 31.8 g/dl (33.0-37.0); MEAN PLATELET VOLUME 9.6 fl (9.6-12.3); PLATELET COUNT AUTOMATED 275 10*3/uL (130-400); RED BLOOD COUNT 5.13 10*6/uL (4.10-5.10); WHITE BLOOD COUNT 24.7 10*3/uL (4.8-10.8)
[2016-07-05 06:35] LABS: BUN 41 mg/dl (7-24); CARBON DIOXIDE 35 mmol/L (21-32); CHLORIDE 94 mmol/L (98-107); EST GLOM FILT AFRICAN AMERICAN > 60 ml/min; GLUCOSE 198 mg/dL (65-99); MEAN CELL VOLUME 87.1 fl (81.0-99.0); POTASSIUM 4.9 mmol/L (3.5-5.1); SODIUM 137 mmol/L (136-145)
[2016-07-05 06:45] LABS: INTERNATIONAL NORM RATIO 2.9 (2.0-3.5); PROTHROMBIN TIME 33.5 SECONDS (9.0-12.4)
[2016-07-05 07:00] LABS: METAMYELOCYTES 1 % (0-0); NEUTROPHIL # 20.5 10*3/uL (2.3-7.9); NEUTROPHILS 83 % (47-73); TOTAL CELLS COUNTED 100 #CELLS
[2016-07-05 07:01] LABS: PLATELET SUFFICIENCY NORMAL (NORMAL)
[2016-07-05 12:00] VITALS: BP 150/0
[2016-07-05 16:00] VITALS: BP 156/120; BP 156/121
[2016-07-05 20:00] VITALS: BP 140/99
[2016-07-06] VITALS: BP 137/85
[2016-07-06 06:49] LABS: HEMATOCRIT 44.3 % (37.0-47.0); HEMOGLOBIN 13.8 g/dl (12.0-16.0); MEAN CELL VOLUME 87.7 fl (81.0-99.0); MEAN CORPUSCULAR HGB 27.3 pg (27.0-31.0); MEAN CORPUSCULAR HGB CONC 31.2 g/dl (33.0-37.0); MEAN PLATELET VOLUME 9.7 fl (9.6-12.3); PLATELET COUNT AUTOMATED 268 10*3/uL (130-400); RED BLOOD COUNT 5.05 10*6/uL (4.10-5.10); RED CELL DISTRI WIDTH 15.2 % (0-14.5); WHITE BLOOD COUNT 22.8 10*3/uL (4.8-10.8)
[2016-07-06 07:21] LABS: CHLORIDE 93 mmol/L (98-107); POTASSIUM 4.5 mmol/L (3.5-5.1); SODIUM 136 mmol/L (136-145)
[2016-07-06 07:22] LABS: INTERNATIONAL NORM RATIO 3.1 (2.0-3.5); PROTHROMBIN TIME 35.8 SECONDS (9.0-12.4)
[2016-07-06 07:35] LABS: ALBUMIN 2.7 gm/dl (3.1-4.5); ALKALINE PHOSPHATASE 84 U/L (45-117); BILIRUBIN, TOTAL 0.6 mg/dl (0.2-1.0); BUN 42 mg/dl (7-24); CARBON DIOXIDE 37 mmol/L (21-32); EST GLOM FILT AFRICAN AMERICAN > 60 ml/min; GLUCOSE 174 mg/dL (65-99); SGOT/AST 10 IU/L (3-35); SGPT/ALT 16 U/L (12-78); TOTAL PROTEIN 6.7 gm/dL (6.4-8.2)
[2016-07-06 07:39] LABS: LYMPHOCYTE # 0.5 10*3/uL (1.3-4.4); METAMYELOCYTES 1 % (0-0); MONOCYTE # 3.2 10*3/uL (0.1-1.0); NEUTROPHIL # 18.9 10*3/uL (2.3-7.9); NEUTROPHILS 83 % (47-73); PLATELET SUFFICIENCY NORMAL (NORMAL); TOTAL CELLS COUNTED 100 #CELLS
[2016-07-06 08:00] VITALS: BP 152/103
[2016-07-06 12:00] VITALS: BP 148/98
[2016-07-06 16:00] VITALS: BP 150/86; BP 155/106
[2016-07-06] MEDS ORDERED: MUCINEX ER600 MG PO (16:26)
[2016-07-06] MEDS ORDERED: DILTIAZEM 24HR120 MG PO (16:26)
[2016-07-06] MEDS ORDERED: METOPROLOL TART50 M1 PO (16:26)
[2016-07-06] MEDS ORDERED: DOXYCYCLINE MO100 M1 PO (16:31)
[2016-07-06] MEDS ORDERED: AVPAK AZITHROM250 M1 PO (16:31)
[2016-07-06] MEDS ORDERED: LANOXIN250 MCG PO (17:54)
== END 2016-07-06 18:23 | disposition other institution (70) | DRG 871 ==
LOC: ED 03:54 → ICCU 05:28 → 4E 05:28 → ICCU 07-05 10:03 → 4E 07-05 12:14
PROVIDERS: Emergency Medicine Emergency Medical Services; Hospitalist; Internal Medicine; Internal Medicine Critical Care Medicine; Internal Medicine Hospice and Palliative Medicine; Student in an Organized Health Care Education/Training Program
PROC: 02HV33Z Insertion of Infusion Device into Superior Vena Cava, Percutaneous Approach (ICD-10-PCS; principal; 2016-07-02)
PROC: B548ZZA Ultrasonography of Superior Vena Cava, Guidance (ICD-10-PCS; 2016-07-02)
PROC: 5A09357 Assistance with Respiratory Ventilation, Less than 24 Consecutive Hours, Continuous Positive Airway Pressure (ICD-10-PCS; 2016-07-02)
DX: A41.9 Sepsis, unspecified organism (principal); I50.23 Acute on chronic systolic (congestive) heart failure; J96.21 Acute and chronic respiratory failure with hypoxia; J15.8 Pneumonia due to other specified bacteria; E44.0 Moderate protein-calorie malnutrition; E11.65 Type 2 diabetes mellitus with hyperglycemia; J44.9 Chronic obstructive pulmonary disease, unspecified; I48.2 Chronic atrial fibrillation; Z68.44 Body mass index [BMI] 60.0-69.9, adult; J45.901 Unspecified asthma with (acute) exacerbation; J96.22 Acute and chronic respiratory failure with hypercapnia; D64.9 Anemia, unspecified; E83.41 Hypermagnesemia; R65.20 Severe sepsis without septic shock; E66.01 Morbid (severe) obesity due to excess calories; Z87.891 Personal history of nicotine dependence; K21.9 Gastro-esophageal reflux disease without esophagitis; F32.9 Major depressive disorder, single episode, unspecified; Z79.01 Long term (current) use of anticoagulants; I87.2 Venous insufficiency (chronic) (peripheral); Z79.4 Long term (current) use of insulin; Z88.0 Allergy status to penicillin; Z88.8 Allergy status to other drugs, medicaments and biological substances; Z91.041 Radiographic dye allergy status; Z86.73 Personal history of transient ischemic attack (TIA), and cerebral infarction without residual deficits; G47.33 Obstructive sleep apnea (adult) (pediatric)

== ENCOUNTER → 2016-07-12 | Outpatient (CLI) | payer MEDICARE, MEDICAID ==
[~2016-07-12] MED LIST changes: +ALBUTEROL 3 ML 33 ML NEB; +AVPAK AZITHROM250 M1 PO; +BETHANECHOL CHL10 MG PO; +BREO ELLIPTA 11 EACH IH; +CARDIZEM CD240 M1 PO; +CELEBREX100 MG PO; +COUMADIN2 MG PO; +DILTIAZEM 24HR120 MG PO; +DOXYCYCLINE MO100 M1 PO; +FLORASTOR250 MG PO; +JANUVIA100 MG PO; +KLOR-CON 1010 ME1 PO; +LANOXIN250 MCG PO; +LASIX20 MG PO; +LIPITOR10 MG PO; +METFORMIN1000 MG PO; +METOPROLOL TART50 M1 PO; +MUCINEX ER600 MG PO; +NOVOLOG10 ML SQ; +POTASSIUM CHLO10 ME5 PO; +POTASSIUM CHLO20 MEQ PO; +RANITIDINE HCL150 M1 PO
== END | disposition home or self-care (01) ==
LOC: CT 02:08
DX: I70.0 Atherosclerosis of aorta (principal); M47.896 Other spondylosis, lumbar region; R10.9 Unspecified abdominal pain; R11.0 Nausea; E27.8 Other specified disorders of adrenal gland; Z85.3 Personal history of malignant neoplasm of breast

== ENCOUNTER 2016-08-05 10:03 | Inpatient (IN) | payer MEDICARE, MEDICAID ==
[2016-08-05] VITALS (7 sets, daily range): BP systolic 137–196; BP diastolic 59–97
[~2016-08-05] VITALS: Ht 154.9 cm; Wt 141.2 kg
--- NOTE | ~2016-08-05 | PR ---
[place], [place] PROGRESS NOTE NAME: KRIS MCCOY UNIT #: [id number] ROOM: [facility] DOCTOR: ABRAHAM GALLO DO BIRTHDATE: [birth year] DOS: 08/06/2016 ADDENDUM I directly supervised the procedure, placement of the triple lumen catheter. I agree with the above stated dictation. ABRAHAM GALLO DO CM:SABINA [id number] ABRAHAM GALLO DO 08/08/16 0952 interface
--- NOTE | ~2016-08-05 | O ---
[place], [place] OPERATIVE NOTE NAME: KRIS MCCOY UNIT #: [id number] ROOM: [facility] DOCTOR: EFREN MERCADO MD BIRTHDATE: [birth year] DOS: 08/06/2016 We answered a code blue at approximately 0345 today. DESCRIPTION OF PROCEDURE: The patient was intubated during the code blue with a single attempt with a 7.5 endotracheal tube. Breath sounds were equal bilaterally after intubation and tidal CO2 was checked and positive. The tube was secured at about 23 cm and CPR continued after intubation. EFREN MERCADO MD CM:OPRECORD:OPERATIVE NOTE 1609 1905 EFREN MERCADO MD 08/06/16 1906 interface
--- NOTE | ~2016-08-05 | PROC NOTE ---
[place], [place] PROCEDURE NOTE NAME: KRIS MCCOY UNIT #: [id number] ROOM: [facility] DOCTOR: PRATIBHA MCDOWELL DO BIRTHDATE: [birth year] DOS: 08/06/2016 TIME: 5:00 p.m. INDICATION: Intravenous access. RESIDENT: Dr. Pratibha Mcdowell. ATTENDING: Dr. Abraham Gallo. A timeout was completed, verifying correct patient, procedure, site, positioning. DESCRIPTION OF PROCEDURE: The patient was placed in a dependent position, appropriate for central line placement based on the vein to be cannulated. The patient's right neck was prepped and draped in a sterile fashion. 1% lidocaine was used to anesthetize the surrounding skin area. A triple lumen catheter was introduced into the internal jugular using the Seldinger technique and under ultrasound guidance, the catheter was threaded smoothly over the guidewire and appropriate blood return was obtained. Each lumen of the catheter was evacuated of air and flushed with sterile saline, though the catheter was then sutured in place to the skin. A sterile dressing applied. Perfusion of the extremity distal to the point of the catheter insertion was checked and found to be adequate. Dr. Gallo and Dr. Schwarz were present for the entire procedure. ESTIMATED BLOOD LOSS: 1 mL. The patient tolerated the procedure well. There were no complications. PRATIBHA MCDOWELL DO ABRAHAM GALLO DO CM:PROCNOTE:PROCEDURE NOTE 1751 [id number] PRATIBHA MCDOWELL DO
[2016-08-05 10:45] LABS: HEMATOCRIT 35.5 % (37.0-47.0); HEMOGLOBIN 10.4 g/dl (12.0-16.0); MEAN CELL VOLUME 90.6 fl (81.0-99.0); MEAN CORPUSCULAR HGB 26.5 pg (27.0-31.0); MEAN CORPUSCULAR HGB CONC 29.3 g/dl (33.0-37.0); MEAN PLATELET VOLUME 9.5 fl (9.6-12.3); NUCLEATED RED BLOOD CELL 0.2 10*3/uL (0.0-0.0); NUCLEATED RED BLOOD CELL 1.9 % (0.0-0.0); PLATELET COUNT AUTOMATED 277 10*3/uL (130-400); RED BLOOD COUNT 3.92 10*6/uL (4.10-5.10); RED CELL DISTRI WIDTH 16.9 % (0-14.5); WHITE BLOOD COUNT 9.1 10*3/uL (4.8-10.8)
[2016-08-05 10:52] LABS: ABG BASE EXCESS 0.9 mmol/L (-2.0-2.0); ABG CO2 CONTENT 29.4 mmol/L (23-27); ABG HCO3 27.6 mmol/l (22-26); ABG TEMPERATURE 98.8 F (98.0-99.0); ARTERIAL BLOOD GAS PH 7.302 (7.35-7.45); ARTERIAL BLOOD GAS PO2 60.3 mmHg (80-90); INTERNATIONAL NORM RATIO 1.3 (2.0-3.5); PROTHROMBIN TIME 13.7 SECONDS (9.0-12.4)
[2016-08-05] MEDS ORDERED: LEADER ASPIRIN81 MG PO (10:57)
[2016-08-05] MEDS ORDERED: ALLOPURINOL300 MG PO (10:57)
[2016-08-05] MEDS ORDERED: BREO ELLIPTA 11 EACH IH (10:57)
[2016-08-05] MEDS ORDERED: CELEXA20 MG PO (10:58)
[2016-08-05] MEDS ORDERED: CELEBREX100 MG PO (10:58)
[2016-08-05] MEDS ORDERED: COUMADIN4 M2 PO (10:59)
[2016-08-05] MEDS ORDERED: DILTIAZEM ER120 MG PO (11:00)
[2016-08-05] MEDS ORDERED: DIGOX0.25 MG PO (11:00)
[2016-08-05] MEDS ORDERED: FLOMAX0.4 MG PO (11:01)
[2016-08-05] MEDS ORDERED: FLORASTOR 33 MG1 CAP PO (11:01)
[2016-08-05] MEDS ORDERED: JANUVIA100 MG PO (11:01)
[2016-08-05 11:02] LABS: ALBUMIN 2.9 gm/dl (3.1-4.5); ALKALINE PHOSPHATASE 117 U/L (45-117); BILIRUBIN, TOTAL 0.7 mg/dl (0.2-1.0); BUN 27 mg/dl (7-24); CARBON DIOXIDE 27 mmol/L (21-32); CHLORIDE 99 mmol/L (98-107); EST GLOM FILT AFRICAN AMERICAN 48 ml/min; GLUCOSE 360 mg/dL (65-99); MAGNESIUM 1.8 mg/dL (1.5-2.1); SGOT/AST 33 IU/L (3-35); SGPT/ALT 27 U/L (12-78); SODIUM 135 mmol/L (136-145); TOTAL PROTEIN 6.8 gm/dL (6.4-8.2)
[2016-08-05] MEDS ORDERED: LIPITOR10 MG PO (11:02)
[2016-08-05] MEDS ORDERED: LASIX40 MG PO (11:02)
[2016-08-05] MEDS ORDERED: POTASSIUM CHLO10 ME5 PO (11:03)
[2016-08-05] MEDS ORDERED: GUAIFENESIN200 MG PO (11:04)
[2016-08-05 11:05] LABS: METAMYELOCYTES 5 % (0-0); MONOCYTE # 0.2 10*3/uL (0.1-1.0); MYELOCYTES 2 % (0-0); NEUTROPHIL # 7.3 10*3/uL (2.3-7.9); NEUTROPHILS 80 % (47-73); POTASSIUM 6.5 mmol/L (3.5-5.1); TOTAL CELLS COUNTED 100 #CELLS; TROPONIN I < 0.015 ng/ml (<0.045)
[2016-08-05 11:06] LABS: POLYCHROMASIA SLIGHT
[2016-08-05] MEDS ORDERED: LEVEMIR10 ML SC (11:06)
[2016-08-05] MEDS ORDERED: METOPROLOL SUC100 M1 PO (11:06)
[2016-08-05] MEDS ORDERED: METFORMIN1000 MG PO (11:06)
[2016-08-05] MEDS ORDERED: ALDACTONE25 M1 PO (11:07)
[2016-08-05] MEDS ORDERED: RANITIDINE HCL150 M1 PO (11:07)
[2016-08-05] MEDS ORDERED: NOVOLOG10 ML IV (11:07)
[2016-08-05] MEDS ORDERED: BETHANECHOL CHL10 MG PO (11:08)
[2016-08-05] MEDS ORDERED: CLONIDINE0.3 MG PO (11:08)
[2016-08-05 11:09] LABS: PLATELET SUFFICIENCY NORMAL (NORMAL); TEAR DROP CELLS FEW
[2016-08-05] MEDS ORDERED: XANAX0.25 MG PO (11:09)
[2016-08-05] MEDS ORDERED: OXYCODONE AND A1 TA9 PO (11:09)
[2016-08-05] MEDS ORDERED: TYLENOL325 M1 PO (11:09)
[2016-08-05 11:54] LABS: BILIRUBIN NEGATIVE (NEGATIVE); BLOOD NEGATIVE (NEGATIVE); CLARITY CLEAR (CLEAR); COLOR YELLOW (YELLOW); GLUCOSE 3+ (NEGATIVE); KETONE NEGATIVE (NEGATIVE); LEUKO ESTERASE NEGATIVE (NEGATIVE); NITRITE NEGATIVE (NEGATIVE); PROTEIN NEGATIVE (NEGATIVE); UROBILINOGEN 0.2 E.U./dl (0.2-1.0)
[2016-08-05 12:07] LABS: EPITHELIAL CELLS 0-2; URINE REFLEX COMMENT NO (NO); WBC 0-2 wbc/hpf (0-5)
[2016-08-05 17:07] LABS: ABG BASE EXCESS 3.1 mmol/L (-2.0-2.0); ABG CO2 CONTENT 30.6 mmol/L (23-27); ABG HCO3 28.9 mmol/l (22-26); ABG TEMPERATURE 98.6 F (98.0-99.0); ARTERIAL BLOOD GAS PH 7.35 (7.35-7.45)
[2016-08-05 17:13] LABS: MAGNESIUM 1.9 mg/dL (1.5-2.1); POTASSIUM 5.9 mmol/L (3.5-5.1)
[2016-08-05 17:17] LABS: PHOSPHOROUS 3.6 mg/dL (2.5-4.9)
[2016-08-05 17:27] LABS: THYROID STIM HORMONE (HS) 1.55 uIU/ml (0.358-4.75)
[2016-08-05 17:38] LABS: DIGOXIN 2.32 ng/ml (0.8-2.0)
[2016-08-05 22:16] LABS: MAGNESIUM 1.7 mg/dL (1.5-2.1); PHOSPHOROUS 3.3 mg/dL (2.5-4.9)
[2016-08-05 22:18] LABS: POTASSIUM 4.5 mmol/L (3.5-5.1)
[2016-08-06] VITALS (9 sets, daily range): BP systolic 128–200; BP diastolic 58–175
[2016-08-06 06:10] LABS: BUN 19 mg/dl (7-24); CARBON DIOXIDE 35 mmol/L (21-32); CHLORIDE 97 mmol/L (98-107); EST GLOM FILT AFRICAN AMERICAN > 60 ml/min; FREE T4 1.16 ng/dl (0.76-1.46); GLUCOSE 277 mg/dL (65-99); MAGNESIUM 1.5 mg/dL (1.5-2.1); POTASSIUM 4.4 mmol/L (3.5-5.1); SODIUM 138 mmol/L (136-145)
[2016-08-06 06:20] LABS: HEMATOCRIT 35.6 % (37.0-47.0); HEMOGLOBIN 10.4 g/dl (12.0-16.0); MEAN CELL VOLUME 90.6 fl (81.0-99.0); MEAN CORPUSCULAR HGB 26.5 pg (27.0-31.0); MEAN CORPUSCULAR HGB CONC 29.2 g/dl (33.0-37.0); MEAN PLATELET VOLUME 9.5 fl (9.6-12.3); NUCLEATED RED BLOOD CELL 0.1 10*3/uL (0.0-0.0); PLATELET COUNT AUTOMATED 289 10*3/uL (130-400); RED BLOOD COUNT 3.93 10*6/uL (4.10-5.10); WHITE BLOOD COUNT 8.9 10*3/uL (4.8-10.8)
[2016-08-06 06:22] LABS: DIGOXIN 1.46 ng/ml (0.8-2.0)
[2016-08-06 06:28] LABS: INTERNATIONAL NORM RATIO 1.1 (2.0-3.5); PROTHROMBIN TIME 11.7 SECONDS (9.0-12.4)
[2016-08-06 07:06] LABS: EOSINOPHIL # 0.1 10*3/uL (0-0.4); EOSINOPHILS 1 % (1-4); LYMPHOCYTE # 0.4 10*3/uL (1.3-4.4); METAMYELOCYTES 4 % (0-0); MYELOCYTES 2 % (0-0); NEUTROPHIL # 6.9 10*3/uL (2.3-7.9); NEUTROPHILS 78 % (47-73); PLATELET SUFFICIENCY NORMAL (NORMAL); POLYCHROMASIA SLIGHT; TOTAL CELLS COUNTED 100 #CELLS
[2016-08-06 10:44] LABS: FOLIC ACID 5.75 ng/mL (>5.38)
[2016-08-06] MEDS ORDERED: DUONEB 3 MG/3 ML3 M1 NEB (16:34)
[2016-08-06] MEDS ORDERED: METOPROLOL TART50 M1 OGT (16:34)
[2016-08-06] MEDS ORDERED: ENOXAPARIN100 MG/1 M SC (16:34)
[2016-08-06] MEDS ORDERED: DULE1ARO1 INH (16:34)
[2016-08-06] MEDS ORDERED: FUROSEMIDE10 MG/ML IV (16:34)
[2016-08-06] MEDS ORDERED: LIPITOR10 MG PO (16:34)
[2016-08-06] MEDS ORDERED: HUMALOG100 U/ML SC (16:34)
[2016-08-06] MEDS ORDERED: AMIODARONE900 MG/501 IV (16:34)
[2016-08-06] MEDS ORDERED: LEVAQUIN750 M1 IV (17:08)
[2016-08-06 17:14] LABS: ABG BASE EXCESS 1.1 mmol/L (-2.0-2.0); ABG CO2 CONTENT 28.8 mmol/L (23-27); ABG HCO3 27.2 mmol/l (22-26); ABG TEMPERATURE 98.3 F (98.0-99.0); ARTERIAL BLOOD GAS PH 7.333 (7.35-7.45); ARTERIAL BLOOD GAS PO2 88.1 mmHg (80-90)
[2016-08-06 18:30] LABS: HEMATOCRIT 36.5 % (37.0-47.0); HEMOGLOBIN 10.9 g/dl (12.0-16.0); MEAN CELL VOLUME 89.9 fl (81.0-99.0); MEAN CORPUSCULAR HGB 26.8 pg (27.0-31.0); MEAN CORPUSCULAR HGB CONC 29.9 g/dl (33.0-37.0); MEAN PLATELET VOLUME 9.5 fl (9.6-12.3); NUCLEATED RED BLOOD CELL 0.3 10*3/uL (0.0-0.0); PLATELET COUNT AUTOMATED 336 10*3/uL (130-400); RED BLOOD COUNT 4.06 10*6/uL (4.10-5.10); WHITE BLOOD COUNT 24.3 10*3/uL (4.8-10.8)
[2016-08-06 18:48] LABS: ALBUMIN 2.8 gm/dl (3.1-4.5); BILIRUBIN, TOTAL 0.9 mg/dl (0.2-1.0); POTASSIUM 4.3 mmol/L (3.5-5.1); TOTAL PROTEIN 6.5 gm/dL (6.4-8.2)
[2016-08-06 18:49] LABS: CKMB 3.2 ng/ml (0.5-3.6)
[2016-08-06 18:51] LABS: TROPONIN I 0.288 ng/ml (<0.045)
[2016-08-06 19:22] LABS: METAMYELOCYTES 4 % (0-0); MONOCYTE # 3.6 10*3/uL (0.1-1.0); NEUTROPHIL # 18.7 10*3/uL (2.3-7.9); NEUTROPHILS 77 % (47-73); POLYCHROMASIA SLIGHT; TOTAL CELLS COUNTED 100 #CELLS
[2016-08-06 19:23] LABS: PLATELET SUFFICIENCY NORMAL (NORMAL); STOMATOCYTE FEW
[2016-08-06 20:25] LABS: LA>2 REFLEX 2 HR DRAW NOW
== END 2016-08-06 19:45 | disposition short-term general hospital (02) | DRG 208 ==
LOC: ED 10:03 → EDHOLD 12:50 → ICCU 12:50 → 4E 13:16 → ICCU 13:38
PROVIDERS: Emergency Medicine; Family Medicine; Internal Medicine; Internal Medicine Cardiovascular Disease; Internal Medicine Hospice and Palliative Medicine
PROC: 0BH17EZ Insertion of Endotracheal Airway into Trachea, Via Natural or Artificial Opening (ICD-10-PCS; principal; 2016-08-06)
PROC: 02HV33Z Insertion of Infusion Device into Superior Vena Cava, Percutaneous Approach (ICD-10-PCS; principal; 2016-08-06)
PROC: B548ZZA Ultrasonography of Superior Vena Cava, Guidance (ICD-10-PCS; principal; 2016-08-06)
PROC: 5A1935Z Respiratory Ventilation, Less than 24 Consecutive Hours (ICD-10-PCS; principal; 2016-08-06)
DX: J96.01 Acute respiratory failure with hypoxia (principal); N17.0 Acute kidney failure with tubular necrosis; R65.11 Systemic inflammatory response syndrome (SIRS) of non-infectious origin with acute organ dysfunction; I50.41 Acute combined systolic (congestive) and diastolic (congestive) heart failure; G93.41 Metabolic encephalopathy; E43 Unspecified severe protein-calorie malnutrition; I48.2 Chronic atrial fibrillation; E11.65 Type 2 diabetes mellitus with hyperglycemia; I46.9 Cardiac arrest, cause unspecified; E87.1 Hypo-osmolality and hyponatremia; Z68.43 Body mass index [BMI] 50.0-59.9, adult; J96.02 Acute respiratory failure with hypercapnia; I45.10 Unspecified right bundle-branch block; E87.5 Hyperkalemia; D64.9 Anemia, unspecified; E66.01 Morbid (severe) obesity due to excess calories; D72.810 Lymphocytopenia; Z90.710 Acquired absence of both cervix and uterus; Z82.0 Family history of epilepsy and other diseases of the nervous system; Z88.0 Allergy status to penicillin; Z88.8 Allergy status to other drugs, medicaments and biological substances; Z91.041 Radiographic dye allergy status; Z79.1 Long term (current) use of non-steroidal anti-inflammatories (NSAID); Z79.82 Long term (current) use of aspirin; Z79.4 Long term (current) use of insulin; Z79.84 Long term (current) use of oral hypoglycemic drugs; Z79.899 Other long term (current) drug therapy; Z79.01 Long term (current) use of anticoagulants; Z86.73 Personal history of transient ischemic attack (TIA), and cerebral infarction without residual deficits; Z82.5 Family history of asthma and other chronic lower respiratory diseases

== ENCOUNTER 2016-09-05 12:00 | Inpatient (IN) | payer MEDICARE, MEDICAID ==
[~2016-09-05] VITALS: Ht 154.9 cm; Wt 130.7 kg
[2016-09-05] VITALS (8 sets, daily range): BP systolic 106–142; BP diastolic 46–59
[~2016-09-05 12:00] MED LIST changes: +ALDACTONE25 M1 PO; +AMIODARONE900 MG/501 IV; +CELEXA20 MG PO; +COUMADIN4 M2 PO; +DIGOX0.25 MG PO; +DILTIAZEM ER120 MG PO; +DULE1ARO1 INH; +DUONEB 3 MG/3 ML3 M1 NEB; +ENOXAPARIN100 MG/1 M SC; +FLORASTOR 33 MG1 CAP PO; +FUROSEMIDE10 MG/ML IV; +GUAIFENESIN200 MG PO; +LASIX40 MG PO; +LEADER ASPIRIN81 MG PO; +LEVAQUIN750 M1 IV; +METOPROLOL SUC100 M1 PO; +METOPROLOL TART50 M1 OGT; +NOVOLOG10 ML IV; +OXYCODONE AND A1 TA9 PO
[2016-09-05 12:30] LABS: BASO # 0.1 10*3/uL (0.0-0.1); BASO % 0.5 % (0.0-1.0); EOS # 0.4 10*3/uL (0.0-0.4); EOS % 3.4 % (1.0-4.0); HEMATOCRIT 32.5 % (37.0-47.0); HEMOGLOBIN 9.9 g/dl (12.0-16.0); IG # 0.3 10*3/uL (0.0-0.1); LYMPH # 1.5 10*3/uL (1.3-4.4); LYMPH % 13.3 % (27.0-41.0); MEAN CELL VOLUME 87.8 fl (81.0-99.0); MEAN CORPUSCULAR HGB 26.8 pg (27.0-31.0); MEAN CORPUSCULAR HGB CONC 30.5 g/dl (33.0-37.0); MEAN PLATELET VOLUME 8.9 fl (9.6-12.3); MONO # 1.2 10*3/uL (0.1-1.0); MONO % 10.4 % (3.0-9.0); NEUT # 7.7 10*3/uL (2.3-7.9); PLATELET COUNT AUTOMATED 271 10*3/uL (130-400); WHITE BLOOD COUNT 11.1 10*3/uL (4.8-10.8)
[2016-09-05 12:39] LABS: INTERNATIONAL NORM RATIO 1.6 (2.0-3.5); PROTHROMBIN TIME 17.7 SECONDS (9.0-12.4)
[2016-09-05 12:46] LABS: ALBUMIN 2.8 gm/dl (3.1-4.5); ALKALINE PHOSPHATASE 170 U/L (45-117); BILIRUBIN, TOTAL 0.3 mg/dl (0.2-1.0); BUN 31 mg/dl (7-24); CARBON DIOXIDE 29 mmol/L (21-32); CHLORIDE 95 mmol/L (98-107); CPK 32 U/L (26-192); EST GLOM FILT AFRICAN AMERICAN 39 ml/min; GLUCOSE 266 mg/dL (65-99); SGOT/AST 11 IU/L (3-35); SGPT/ALT 14 U/L (12-78); SODIUM 133 mmol/L (136-145)
[2016-09-05 12:47] LABS: CKMB 0.7 ng/ml (0.5-3.6)
[2016-09-05 12:50] LABS: TROPONIN I < 0.015 ng/ml (<0.045)
[2016-09-05] MEDS ORDERED: ZYLOPRIM300 MG PO (17:02)
[2016-09-05] MEDS ORDERED: AMIODARONE HCL200 MG PO (17:03)
[2016-09-05] MEDS ORDERED: AMITRIPTYLINE25 MG PO (17:04)
[2016-09-05] MEDS ORDERED: BREO ELLIPTA 11 EACH IH (17:06)
[2016-09-05] MEDS ORDERED: CELECOXIB200 M1 PO (17:07)
[2016-09-05] MEDS ORDERED: CELEXA20 MG PO (17:08)
[2016-09-05] MEDS ORDERED: COUMADIN5 M2 PO (17:10)
[2016-09-05] MEDS ORDERED: LANTUS100 U/ML SC (17:29)
[2016-09-05] MEDS ORDERED: DILTIAZEM CD240 MG PO (17:29)
[2016-09-05] MEDS ORDERED: LISINOPRIL10 M1 PO (17:30)
[2016-09-05] MEDS ORDERED: PRILOSEC20 M1 PO (17:30)
[2016-09-05] MEDS ORDERED: DEMADEX20 M1 PO (17:30)
[2016-09-05] MEDS ORDERED: BRILINTA90 M1 PO (17:32)
[2016-09-05] MEDS ORDERED: BACTRIM DS 8001 TAB PO (17:32)
[2016-09-05] MEDS ORDERED: CLONIDINE0.2 MG PO (17:33)
[2016-09-05] MEDS ORDERED: HUMALOG100 U/ML SC (17:35)
[2016-09-05] MEDS ORDERED: METOPROLOL TART75 MG PO (17:43)
[2016-09-05] MEDS ORDERED: ZANTAC 150150 MG PO (17:44)
[2016-09-05] MEDS ORDERED: POTASSIUM CHLO10 ME5 PO (17:44)
[2016-09-05] MEDS ORDERED: SPIRONOLACTONE25 MG PO (17:46)
[2016-09-05] MEDS ORDERED: NORCO 7.5-3251 EACH PO (17:48)
[2016-09-05] MEDS ORDERED: ULTRAM50 MG PO (17:48)
[2016-09-05] MEDS ORDERED: XANAX0.25 MG PO (17:49)
[2016-09-06] VITALS: BP 140/55
[2016-09-06 06:42] LABS: HEMATOCRIT 32.7 % (37.0-47.0); HEMOGLOBIN 10.1 g/dl (12.0-16.0); MEAN CELL VOLUME 86.7 fl (81.0-99.0); MEAN CORPUSCULAR HGB 26.8 pg (27.0-31.0); MEAN CORPUSCULAR HGB CONC 30.9 g/dl (33.0-37.0); PLATELET COUNT AUTOMATED 242 10*3/uL (130-400); RED BLOOD COUNT 3.77 10*6/uL (4.10-5.10); RED CELL DISTRI WIDTH 17.2 % (0-14.5); WHITE BLOOD COUNT 8.5 10*3/uL (4.8-10.8)
[2016-09-06 06:50] LABS: INTERNATIONAL NORM RATIO 1.7 (2.0-3.5); PROTHROMBIN TIME 18.6 SECONDS (9.0-12.4)
[2016-09-06 07:02] LABS: BASOPHIL # 0.1 10*3/uL (0-0.1); BASOPHILS 1 % (0-1); EOSINOPHIL # 0.3 10*3/uL (0-0.4); EOSINOPHILS 4 % (1-4); LYMPHOCYTE # 1.4 10*3/uL (1.3-4.4); METAMYELOCYTES 3 % (0-0); MONOCYTE # 0.8 10*3/uL (0.1-1.0); MYELOCYTES 3 % (0-0); NEUTROPHIL # 5.4 10*3/uL (2.3-7.9); NEUTROPHILS 63 % (47-73); OVALOCYTES FEW; PLATELET SUFFICIENCY NORMAL (NORMAL); TOTAL CELLS COUNTED 100 #CELLS
[2016-09-06 07:05] LABS: FREE T4 1.14 ng/dl (0.76-1.46); POTASSIUM 4.7 mmol/L (3.5-5.1)
[2016-09-06 07:11] LABS: THYROID STIM HORMONE (HS) 4.06 uIU/ml (0.358-4.75)
[2016-09-06 07:46] LABS: FOLIC ACID 4.31 ng/mL (>5.38)
[2016-09-06 08:00] VITALS: BP 155/62
[2016-09-06 12:00] VITALS: BP 134/63
[2016-09-06 12:38] LABS: HEMATOCRIT 31.5 % (37.0-47.0); HEMOGLOBIN 10.1 g/dl (12.0-16.0)
[2016-09-06 16:00] VITALS: BP 126/78
[2016-09-06 20:00] VITALS: BP 123/67
[2016-09-07] VITALS: BP 157/63
[2016-09-07 06:37] LABS: HEMATOCRIT 32.2 % (37.0-47.0); HEMOGLOBIN 9.6 g/dl (12.0-16.0); MEAN CELL VOLUME 87.7 fl (81.0-99.0); MEAN CORPUSCULAR HGB 26.2 pg (27.0-31.0); MEAN CORPUSCULAR HGB CONC 29.8 g/dl (33.0-37.0); MEAN PLATELET VOLUME 9.2 fl (9.6-12.3); PLATELET COUNT AUTOMATED 255 10*3/uL (130-400); RED BLOOD COUNT 3.67 10*6/uL (4.10-5.10); RED CELL DISTRI WIDTH 17.2 % (0-14.5); WHITE BLOOD COUNT 7.9 10*3/uL (4.8-10.8)
[2016-09-07 06:46] LABS: CARBON DIOXIDE 28 mmol/L (21-32); CHLORIDE 106 mmol/L (98-107); EST GLOM FILT AFRICAN AMERICAN > 60 ml/min; GLUCOSE 170 mg/dL (65-99); POTASSIUM 4.6 mmol/L (3.5-5.1); SODIUM 141 mmol/L (136-145)
[2016-09-07 06:52] LABS: BUN 16 mg/dl (7-24)
[2016-09-07 06:57] LABS: INTERNATIONAL NORM RATIO 1.5 (2.0-3.5); PROTHROMBIN TIME 16.1 SECONDS (9.0-12.4)
[2016-09-07 07:03] LABS: BASOPHIL # 0.1 10*3/uL (0-0.1); BASOPHILS 1 % (0-1); EOSINOPHIL # 0.2 10*3/uL (0-0.4); EOSINOPHILS 3 % (1-4); LYMPHOCYTE # 1.3 10*3/uL (1.3-4.4); METAMYELOCYTES 1 % (0-0); MONOCYTE # 0.6 10*3/uL (0.1-1.0); MYELOCYTES 3 % (0-0); NEUTROPHIL # 5.4 10*3/uL (2.3-7.9); NEUTROPHILS 68 % (47-73); PLATELET SUFFICIENCY NORMAL (NORMAL); POLYCHROMASIA SLIGHT; TOTAL CELLS COUNTED 100 #CELLS
[2016-09-07 08:00] VITALS: BP 143/65
[2016-09-07 12:00] VITALS: BP 126/61
[2016-09-07 16:00] VITALS: BP 105/50
[2016-09-07 20:00] VITALS: BP 111/52
[2016-09-08] VITALS: BP 140/79
[2016-09-08 05:49] LABS: HEMOGLOBIN 9.3 g/dl (12.0-16.0); MEAN CELL VOLUME 89.1 fl (81.0-99.0); MEAN CORPUSCULAR HGB 26.7 pg (27.0-31.0); MEAN PLATELET VOLUME 8.8 fl (9.6-12.3); NUCLEATED RED BLOOD CELL 0.2 % (0.0-0.0); PLATELET COUNT AUTOMATED 242 10*3/uL (130-400); RED BLOOD COUNT 3.48 10*6/uL (4.10-5.10); RED CELL DISTRI WIDTH 17.5 % (0-14.5); WHITE BLOOD COUNT 10.3 10*3/uL (4.8-10.8)
[2016-09-08 05:58] LABS: POTASSIUM 4.6 mmol/L (3.5-5.1)
[2016-09-08 06:59] LABS: EOSINOPHIL # 0.6 10*3/uL (0-0.4); EOSINOPHILS 6 % (1-4); HYPOCHROMIA SLIGHT; LYMPHOCYTE # 1.4 10*3/uL (1.3-4.4); METAMYELOCYTES 1 % (0-0); MONOCYTE # 0.7 10*3/uL (0.1-1.0); NEUTROPHIL # 7.4 10*3/uL (2.3-7.9); NEUTROPHILS 72 % (47-73); PLATELET SUFFICIENCY NORMAL (NORMAL); POLYCHROMASIA SLIGHT; TOTAL CELLS COUNTED 100 #CELLS
[2016-09-08 08:00] VITALS: BP 140/73
[2016-09-08 12:00] VITALS: BP 110/45
[2016-09-08 14:16] LABS: BILIRUBIN NEGATIVE (NEGATIVE); BLOOD NEGATIVE (NEGATIVE); CLARITY CLEAR (CLEAR); COLOR YELLOW (YELLOW); GLUCOSE NEGATIVE (NEGATIVE); KETONE NEGATIVE (NEGATIVE); LEUKO ESTERASE NEGATIVE (NEGATIVE); NITRITE NEGATIVE (NEGATIVE); PH 5.5 (5.0-9.0); PROTEIN NEGATIVE (NEGATIVE); SPECIFIC GRAVITY <= 1.005 (1.005-1.030); UROBILINOGEN 0.2 E.U./dl (0.2-1.0)
[2016-09-08 14:24] LABS: BACTERIA TRACE; EPITHELIAL CELLS 0-2; RBC 0-2 rbc/hpf (0-2); URINE REFLEX COMMENT NO (NO)
[2016-09-08 16:00] VITALS: BP 126/55
[2016-09-08 20:00] VITALS: BP 153/86
[2016-09-09] VITALS: BP 146/61
[2016-09-09 05:53] LABS: HEMATOCRIT 32.5 % (37.0-47.0); HEMOGLOBIN 9.8 g/dl (12.0-16.0); MEAN CELL VOLUME 88.6 fl (81.0-99.0); MEAN CORPUSCULAR HGB 26.7 pg (27.0-31.0); MEAN CORPUSCULAR HGB CONC 30.2 g/dl (33.0-37.0); NUCLEATED RED BLOOD CELL 0.2 % (0.0-0.0); PLATELET COUNT AUTOMATED 259 10*3/uL (130-400); RED BLOOD COUNT 3.67 10*6/uL (4.10-5.10); RED CELL DISTRI WIDTH 17.7 % (0-14.5); WHITE BLOOD COUNT 10.9 10*3/uL (4.8-10.8)
[2016-09-09 06:02] LABS: ALBUMIN 2.6 gm/dl (3.1-4.5); BILIRUBIN, TOTAL 0.2 mg/dl (0.2-1.0); POTASSIUM 4.8 mmol/L (3.5-5.1); TOTAL PROTEIN 6.8 gm/dL (6.4-8.2)
[2016-09-09 06:11] LABS: INTERNATIONAL NORM RATIO 2.9 (2.0-3.5); PROTHROMBIN TIME 32.8 SECONDS (9.0-12.4)
[2016-09-09 06:22] LABS: EOSINOPHIL # 0.3 10*3/uL (0-0.4); EOSINOPHILS 3 % (1-4); LYMPHOCYTE # 1.4 10*3/uL (1.3-4.4); METAMYELOCYTES 3 % (0-0); MONOCYTE # 0.7 10*3/uL (0.1-1.0); MYELOCYTES 2 % (0-0); NEUTROPHILS 73 % (47-73); PLATELET SUFFICIENCY NORMAL (NORMAL); TOTAL CELLS COUNTED 100 #CELLS
[2016-09-09 08:00] VITALS: BP 120/72
[2016-09-09 12:00] VITALS: BP 120/43
[2016-09-09 16:00] VITALS: BP 122/76
[2016-09-09 20:00] VITALS: BP 129/72
[2016-09-10] VITALS: BP 114/59
[2016-09-10 06:38] LABS: HEMATOCRIT 31.6 % (37.0-47.0); HEMOGLOBIN 9.5 g/dl (12.0-16.0); MEAN CELL VOLUME 88.8 fl (81.0-99.0); MEAN CORPUSCULAR HGB 26.7 pg (27.0-31.0); MEAN CORPUSCULAR HGB CONC 30.1 g/dl (33.0-37.0); MEAN PLATELET VOLUME 8.7 fl (9.6-12.3); PLATELET COUNT AUTOMATED 241 10*3/uL (130-400); RED BLOOD COUNT 3.56 10*6/uL (4.10-5.10); RED CELL DISTRI WIDTH 17.7 % (0-14.5); WHITE BLOOD COUNT 9.6 10*3/uL (4.8-10.8)
[2016-09-10 07:06] LABS: INTERNATIONAL NORM RATIO 3.6 (2.0-3.5); PROTHROMBIN TIME 41.3 SECONDS (9.0-12.4)
[2016-09-10 07:07] LABS: BASOPHIL # 0.1 10*3/uL (0-0.1); BASOPHILS 1 % (0-1); EOSINOPHIL # 0.3 10*3/uL (0-0.4); EOSINOPHILS 3 % (1-4); METAMYELOCYTES 2 % (0-0); MONOCYTE # 0.7 10*3/uL (0.1-1.0); MYELOCYTES 1 % (0-0); NEUTROPHIL # 7.3 10*3/uL (2.3-7.9); NEUTROPHILS 76 % (47-73); PLATELET SUFFICIENCY NORMAL (NORMAL); POLYCHROMASIA SLIGHT; TOTAL CELLS COUNTED 100 #CELLS
[2016-09-10 07:26] LABS: POTASSIUM 4.8 mmol/L (3.5-5.1)
[2016-09-10 08:00] VITALS: BP 123/55
[2016-09-10 12:00] VITALS: BP 101/74
[2016-09-10] MEDS ORDERED: LEVAQUIN750 M1 PO (14:22)
== END 2016-09-10 16:01 | disposition other institution (70) | DRG 177 ==
LOC: ED 12:00 → EDHOLD 14:39 → 4E 14:39 → EDHOLD 15:09 → 4E 15:40
PROVIDERS: Family Medicine Adult Medicine; Internal Medicine; Internal Medicine Hospice and Palliative Medicine; Registered Nurse; Student in an Organized Health Care Education/Training Program
DX: J15.6 Pneumonia due to other Gram-negative bacteria (principal); N17.0 Acute kidney failure with tubular necrosis; E44.0 Moderate protein-calorie malnutrition; I50.42 Chronic combined systolic (congestive) and diastolic (congestive) heart failure; I48.1 Persistent atrial fibrillation; E11.22 Type 2 diabetes mellitus with diabetic chronic kidney disease; I48.2 Chronic atrial fibrillation; E87.1 Hypo-osmolality and hyponatremia; Z68.43 Body mass index [BMI] 50.0-59.9, adult; F41.9 Anxiety disorder, unspecified; K21.9 Gastro-esophageal reflux disease without esophagitis; D64.9 Anemia, unspecified; E66.01 Morbid (severe) obesity due to excess calories; R00.1 Bradycardia, unspecified; N93.9 Abnormal uterine and vaginal bleeding, unspecified; E53.8 Deficiency of other specified B group vitamins; N18.3 Chronic kidney disease, stage 3 (moderate); Z82.0 Family history of epilepsy and other diseases of the nervous system; Z82.5 Family history of asthma and other chronic lower respiratory diseases; Z88.8 Allergy status to other drugs, medicaments and biological substances; Z86.73 Personal history of transient ischemic attack (TIA), and cerebral infarction without residual deficits; Z88.1 Allergy status to other antibiotic agents; Z91.041 Radiographic dye allergy status; Z79.82 Long term (current) use of aspirin; Z79.4 Long term (current) use of insulin; Z79.899 Other long term (current) drug therapy